=== PATIENT | female | born 1995 | race Caucasian/White ===

== ENCOUNTER 2019-05-19 15:29 | Emergency (ER) | payer OTHER ==
[~2019-05-19] VITALS: Ht 160 cm; Wt 64.9 kg
--- NOTE | 2019-05-19 15:35 | NUR ---
pt. abmulated to bed 12 with steady gait.
[2019-05-19 15:37] VITALS: BP 108/74
--- NOTE | 2019-05-19 15:40 | NUR ---
23F PT PRESENTS TO ER WITH PUNCTURE WOUND TO LT FOREARM S/P DOG BITE. no LOC. no n/v/d. c/o of 07/25 pain. pmhx- denies rx- denies.
[2019-05-19] MEDS ORDERED: cefTRIAXone 1,000 MG in LIDOCAINE MPF 1% 2.1 ML IM ONE (16:20)
[2019-05-19] MEDS ORDERED: BACITRACIN OINT 500 UNITS/GM PKT TP ONE ×2 (16:22→16:25)
[2019-05-19] MEDS ORDERED: cefTRIAXone 1,000 MG VIAL ONE (16:22)
[2019-05-19] MEDS ORDERED: LIDOCAINE MPF 1% 5 ML ONE (16:23)
--- NOTE | 2019-05-19 17:00 | NUR ---
DR BARTHOLOMEW D/C PT WITH RX OF AUGMENTIN
[2019-05-19 17:18] VITALS: BP 108/74
== END 2019-05-19 17:05 | disposition home or self-care (01) ==
LOC: MED 15:29
DX: S51.852A Open bite of left forearm, initial encounter (principal); W54.0XXA Bitten by dog, initial encounter; Y93.89 Activity, other specified; Y92.89 Other specified places as the place of occurrence of the external cause; Y99.8 Other external cause status
CPT/HCPCS: 90471; 90715; 96372; 99284; J0696; J2001